=== PATIENT | female | born 1940 | race Caucasian/White ===

== ENCOUNTER 2020-05-11 21:06 | Emergency (ER) | payer MEDICARE, BC | END 2020-05-11 22:08 | disposition left against medical advice (07) | LOC: ER1 21:06 | DX: I10 Essential (primary) hypertension (principal); Z53.21 Procedure and treatment not carried out due to patient leaving prior to being seen by health care provider | CPT/HCPCS: 93005 ==

== ENCOUNTER 2020-06-22 12:51 | Emergency (ER) | payer MEDICARE, BC ==
[~2020-06-22] VITALS: Ht 154.9 cm; Wt 65.8 kg
[2020-06-22 13:28] LABS: HEMOGLOBIN 15.3 gm/dl (12.3-15.3); RED BLOOD COUNT 5.14 M/UL (4.00-5.10); WHITE BLOOD COUNT 8.5 K/UL (4.5-11.0)
[2020-06-22 13:47] LABS: BUN/CREATININE RATIO 28 (0-10)
[2020-06-22] MEDS ORDERED: REPATHA SC (15:26)
[2020-06-22] MEDS ORDERED: PLAVIX75 MG PO (15:26)
[2020-06-22] MEDS ORDERED: COZAAR 25MG TAB25 MG PO (15:27)
[2020-06-22] MEDS ORDERED: VOLTAREN100 GM TP (15:27)
[2020-06-22] MEDS ORDERED: HYDROCHLOROTHIA25 MG PO (15:27)
[2020-06-22] MEDS ORDERED: CRESTOR5 MG PO (15:28)
[2020-06-22] MEDS ORDERED: REQUIP0.25 MG PO (15:28)
[2020-06-22] MEDS ORDERED: CATAPRES 0.1MG0.1 MG PO (15:28)
[2020-06-22] MEDS ORDERED: CO Q-10100 MG PO (15:29)
== END 2020-06-22 17:09 | disposition short-term general hospital (02) ==
LOC: ER1 12:51 → CDU 14:25 → ER1 14:25
PROVIDERS: Emergency Medicine
DX: G45.9 Transient cerebral ischemic attack, unspecified (principal); I10 Essential (primary) hypertension; Z20.822 Contact with and (suspected) exposure to COVID-19; Z79.899 Other long term (current) drug therapy
CPT/HCPCS: 70450; 71045; 80053; 81001; 82550; 82553; 83735; 83874; 84484; 85025; 85610; 85730; 93005; 99285; U0002

== ENCOUNTER 2020-06-29 20:11 | Emergency (ER) | payer MEDICARE, BC ==
[~2020-06-29 20:11] MED LIST: CATAPRES 0.1MG0.1 MG PO; CO Q-10100 MG PO; COZAAR 25MG TAB25 MG PO; CRESTOR5 MG PO; HYDROCHLOROTHIA25 MG PO; PLAVIX75 MG PO; REPATHA SC; REQUIP0.25 MG PO; VOLTAREN100 GM TP
[2020-06-29 20:39] LABS: HEMOGLOBIN 14.4 gm/dl (12.3-15.3); RED BLOOD COUNT 4.8 M/UL (4.00-5.10); WHITE BLOOD COUNT 4.8 K/UL (4.5-11.0)
[2020-06-29 20:54] LABS: BUN/CREATININE RATIO 26 (0-10)
== END 2020-06-29 21:45 | disposition home or self-care (01) ==
LOC: ER1 20:11
PROVIDERS: Preventive Medicine Occupational Medicine
DX: I10 Essential (primary) hypertension (principal); I25.10 Atherosclerotic heart disease of native coronary artery without angina pectoris; Z86.73 Personal history of transient ischemic attack (TIA), and cerebral infarction without residual deficits
CPT/HCPCS: 36600; 71045; 80053; 80307; 81001; 82550; 82553; 82803; 83690; 83874; 84484; 85025; 85379; 85652; 86140; 87086; 93005; 99284

== ENCOUNTER → 2020-07-04 | Outpatient (CLI) | payer MEDICARE, BC | LOC: EXRD 10:50 | DX: E07.89 Other specified disorders of thyroid (principal) | CPT/HCPCS: 76536 ==

== ENCOUNTER → 2020-08-07 | Outpatient (CLI) | payer MEDICARE, BC | LOC: LAB 10:01 | DX: R00.2 Palpitations (principal); R07.9 Chest pain, unspecified; R94.31 Abnormal electrocardiogram [ECG] [EKG] | CPT/HCPCS: 36415; 82550; 82553; 84484 ==

== ENCOUNTER → 2021-01-11 | Outpatient (CLI) | payer MEDICARE, BC | LOC: OPSV 09:37 | DX: M81.0 Age-related osteoporosis without current pathological fracture (principal) | CPT/HCPCS: 96365; J3489 ==

== ENCOUNTER → 2021-03-05 | Outpatient (CLI) | payer MEDICARE, BC ==
[~2021-03-05] MED LIST changes: +BENICAR20 MG PO; +CRESTOR10 MG PO; +NORVASC2.5 MG PO; +PREMARIN CREAM VG; +PRESERVISION PO; +PREVAGEN PO; +REPATHA INJ; -REPATHA SC; +ROPINIROLE HCL0.5 MG PO
[2021-03-05 12:50] LABS: HEMOGLOBIN 14.5 gm/dl (12.3-15.3); RED BLOOD COUNT 4.69 M/UL (4.00-5.10); WHITE BLOOD COUNT 6.4 K/UL (4.5-11.0)
[2021-03-05 13:39] LABS: BUN/CREATININE RATIO 22 (0-10)
== END ==
LOC: OPSV2 11:57
PROVIDERS: Obstetrics & Gynecology
DX: Z01.818 Encounter for other preprocedural examination (principal); N81.9 Female genital prolapse, unspecified; J43.9 Emphysema, unspecified
CPT/HCPCS: 36415; 71046; 80053; 81001; 85025; 93005

== ENCOUNTER 2021-03-12 06:06 | Observation (INO) | payer MEDICARE, BC ==
[~2021-03-12] VITALS: Ht 157.5 cm; Wt 60.3 kg
[2021-03-12] MEDS ORDERED: DOCUSATE SODIU250 MG PO (14:37)
[2021-03-12] MEDS ORDERED: IBUPROFEN600 MG PO (14:37)
[2021-03-12] MEDS ORDERED: HYDROCODONE-AC1 EACH PO (14:37)
--- NOTE | 2021-03-13 02:08 | NUR ---
2300 [facility] TEMP 95.3, CHECKED MULTIPLE TIMES WITH DIFFERENT THEERMOMETERS WELL HIGHEST TEMP WAS 96.1. APPLIED 3 WARM BLANKETS TO PT. PT OTHER VITALS WNL, PT NO SIGNS OF DISTRESS, PT HANDS AND ARMS DOES NOT FEEL COLD. RECHECKED PT TEMP 2330 97.4. PT IN BED RESTING, NO SIGNS OF DISTRESS, HANDS AND ARMS FEEL WARM.
== END 2021-03-13 11:20 | disposition home or self-care (01) ==
LOC: OR 06:06 → MED SURG 4 15:12
PROVIDERS: ADMIT Obstetrics & Gynecology
DX: N81.6 Rectocele (principal); K66.0 Peritoneal adhesions (postprocedural) (postinfection); I10 Essential (primary) hypertension; E78.5 Hyperlipidemia, unspecified; C83.10 Mantle cell lymphoma, unspecified site; M81.0 Age-related osteoporosis without current pathological fracture; Z79.02 Long term (current) use of antithrombotics/antiplatelets; Z79.899 Other long term (current) drug therapy
CPT/HCPCS: C1769; J0690; J1100; J2001; J2405; J2704; J2710; J3010; J7050; J7120

== ENCOUNTER → 2021-06-01 | Outpatient (CLI) | payer MEDICARE, BC ==
[~2021-06-01] MED LIST changes: +DOCUSATE SODIU250 MG PO; +HYDROCODONE-AC1 EACH PO; +IBUPROFEN600 MG PO
== END ==
LOC: KOH-I 16:33
DX: R05.9 Cough, unspecified (principal)
CPT/HCPCS: 71046

== ENCOUNTER → 2021-06-04 | Outpatient (CLI) | payer MEDICARE, BC | LOC: LAB 12:24 | DX: M48.061 Spinal stenosis, lumbar region without neurogenic claudication (principal); R06.02 Shortness of breath | CPT/HCPCS: 36415; 85379 ==

== ENCOUNTER → 2021-06-18 | Outpatient (CLI) | payer MEDICARE, BC | LOC: HEART 5 08:43 | DX: R06.02 Shortness of breath (principal) | CPT/HCPCS: 94010 ==

== ENCOUNTER 2021-09-26 20:56 | Emergency (ER) | payer MEDICARE, BC | END 2021-09-26 22:35 | disposition home or self-care (01) | LOC: ER1 20:56 | DX: Z03.89 Encounter for observation for other suspected diseases and conditions ruled out (principal); I11.9 Hypertensive heart disease without heart failure; Z86.73 Personal history of transient ischemic attack (TIA), and cerebral infarction without residual deficits; Z90.89 Acquired absence of other organs; Z90.710 Acquired absence of both cervix and uterus | CPT/HCPCS: 71045; 74018; 99283 ==

== ENCOUNTER → 2021-09-26 | Outpatient (CLI) | payer MEDICARE, BC | LOC: KOH-I 11:25 | DX: M47.22 Other spondylosis with radiculopathy, cervical region (principal); M25.512 Pain in left shoulder | CPT/HCPCS: 72040; 73030 ==

== ENCOUNTER → 2021-09-27 | Outpatient (CLI) | payer MEDICARE, BC | LOC: KOH-I 14:27 | DX: T18.4XXA Foreign body in colon, initial encounter (principal) | CPT/HCPCS: 74018 ==

== ENCOUNTER → 2021-10-05 | Outpatient (CLI) | payer MEDICARE, BC | LOC: KOH-I 09:31 | DX: K59.00 Constipation, unspecified (principal); T18.3XXA Foreign body in small intestine, initial encounter | CPT/HCPCS: 74018 ==

== ENCOUNTER → 2021-10-15 | Outpatient (CLI) | payer MEDICARE, BC | LOC: KOH-I 10:21 | DX: T18.3XXA Foreign body in small intestine, initial encounter (principal); X58.XXXA Exposure to other specified factors, initial encounter; M51.9 Unspecified thoracic, thoracolumbar and lumbosacral intervertebral disc disorder | CPT/HCPCS: 74018 ==

== ENCOUNTER → 2021-10-24 | Day surgery (SDC) | payer MEDICARE, BC ==
[~2021-10-24] MED LIST changes: +ARTHRITIS PAIN50 GM TP; +TYLENOL325 M1 PO
== END | disposition home or self-care (01) ==
LOC: OR 05:42
DX: T18.4XXA Foreign body in colon, initial encounter (principal); K21.9 Gastro-esophageal reflux disease without esophagitis; I10 Essential (primary) hypertension; E78.5 Hyperlipidemia, unspecified; M81.0 Age-related osteoporosis without current pathological fracture; G25.81 Restless legs syndrome; Z79.02 Long term (current) use of antithrombotics/antiplatelets; Z79.899 Other long term (current) drug therapy; Z53.9 Procedure and treatment not carried out, unspecified reason
CPT/HCPCS: 74018; J2704

== ENCOUNTER → 2021-11-01 | Outpatient (CLI) | payer MEDICARE, BC ==
[~2021-11-01] VITALS: Ht 154.9 cm; Wt 59.4 kg
== END ==
LOC: EROP 13:38
DX: U07.1 COVID-19 (principal); Z23 Encounter for immunization
CPT/HCPCS: M0222; Q0222

== ENCOUNTER 2022-01-14 10:50 | Inpatient (IN) | payer MEDICARE, BC ==
[~2022-01-14] VITALS: Ht 157.5 cm; Wt 59.9 kg
[~2022-01-14 10:50] MED LIST changes: +PRESERVISION A1 EACH PO; -PRESERVISION PO; -REPATHA INJ; +REPATHA SY140 MG/1 M SQ
[2022-01-14 12:16] LABS: HEMOGLOBIN 15.1 gm/dl (12.3-15.3); RED BLOOD COUNT 4.85 M/UL (4.00-5.10); WHITE BLOOD COUNT 7.6 K/UL (4.5-11.0)
[2022-01-14 12:40] LABS: BUN/CREATININE RATIO 26 (0-10)
[2022-01-14] MEDS ORDERED: HYDROCHLOROTH12.5 MG PO (15:12)
[2022-01-14] MEDS ORDERED: ASPIRIN EC81 MG PO (15:13)
--- NOTE | 2022-01-14 18:23 | NUR ---
01/14/22 1805 RECEIVED FROM ED VIA STRETCHER. ALERT ORIENTED AND COOPERATIVE. [facility] CATH PATENT AND DRAINING CLEAR YELLOW URINE, PEDAL PULSES 2+. KIMBER HEARING AIDS IN USE. 20 GA PIV LEFT AC. FAMILY MEMBER WITH PT
[2022-01-16 04:59] LABS: HEMOGLOBIN 12.6 gm/dl (12.3-15.3); RED BLOOD COUNT 4.17 M/UL (4.00-5.10)
[2022-01-16 05:03] LABS: BUN/CREATININE RATIO 25 (0-10)
[2022-01-17 02:56] LABS: RED BLOOD COUNT 3.95 M/UL (4.00-5.10); WHITE BLOOD COUNT 7.5 K/UL (4.5-11.0)
[2022-01-17 03:26] LABS: BUN/CREATININE RATIO 31 (0-10)
[2022-01-18 03:20] LABS: HEMOGLOBIN 11.2 gm/dl (12.3-15.3); RED BLOOD COUNT 3.68 M/UL (4.00-5.10); WHITE BLOOD COUNT 7.6 K/UL (4.5-11.0)
[2022-01-18 04:11] LABS: BUN/CREATININE RATIO 32 (0-10)
[2022-01-18] MEDS ORDERED: ACETAMINOPHEN500 M1 PO (14:40)
[2022-01-18] MEDS ORDERED: CELEBREX200 MG PO (14:40)
[2022-01-18] MEDS ORDERED: LOVENOX40 MG/0.4 SQ (14:41)
[2022-01-18] MEDS ORDERED: BISACODYL5 MG PO (14:42)
[2022-01-18] MEDS ORDERED: OXYCODONE HCL5 M1 PO (14:43)
[2022-01-18] MEDS ORDERED: NORFLEX 100 MG100 MG PO (14:43)
== END 2022-01-18 15:24 | DRG 522 ==
LOC: ER1 10:50 → CDU 13:11 → M/S 13:11
PROVIDERS: Orthopaedic Surgery; Physician Assistant; ADMIT Internal Medicine
PROC: B24BZZZ Ultrasonography of Heart with Aorta (ICD-10-PCS; 2022-01-14)
PROC: 0SRR0J9 Replacement of Right Hip Joint, Femoral Surface with Synthetic Substitute, Cemented, Open Approach (ICD-10-PCS; principal; 2022-01-15 07:30)
DX: S72.011A Unspecified intracapsular fracture of right femur, initial encounter for closed fracture (principal); C91.11 Chronic lymphocytic leukemia of B-cell type in remission; E87.1 Hypo-osmolality and hyponatremia; E78.5 Hyperlipidemia, unspecified; I10 Essential (primary) hypertension; G25.81 Restless legs syndrome; K21.9 Gastro-esophageal reflux disease without esophagitis; W01.0XXA Fall on same level from slipping, tripping and stumbling without subsequent striking against object, initial encounter; K59.00 Constipation, unspecified; R25.2 Cramp and spasm; M19.91 Primary osteoarthritis, unspecified site; M81.0 Age-related osteoporosis without current pathological fracture; R53.81 Other malaise; T40.2X5A Adverse effect of other opioids, initial encounter; Z90.89 Acquired absence of other organs; Z86.73 Personal history of transient ischemic attack (TIA), and cerebral infarction without residual deficits; Z82.49 Family history of ischemic heart disease and other diseases of the circulatory system; Z90.49 Acquired absence of other specified parts of digestive tract; Z98.49 Cataract extraction status, unspecified eye; Z98.890 Other specified postprocedural states; Z79.82 Long term (current) use of aspirin; Z79.899 Other long term (current) drug therapy
CPT/HCPCS: ECHO; 36415; 71045; 72170; 73502; 73552; 80048; 80053; 82550; 82553; 84484; 85025; 85027; 85610; 86850; 86900; 86901; 93005; 93306; 96374; 96375; 97116; 97116-GP-CQ; 97161; 97168; 97530-GP-CQ; 97535; 99285; C1713; C1776; J0690; J1170; J1650; J2001; J2250; J2270; J2405; J2704; Q9967; U0002